=== PATIENT | female | born 1955 | race Caucasian/White ===

== ENCOUNTER 2024-12-23 13:33 | Emergency (ER) | payer MEDICARE, BC | END 2024-12-23 15:37 | disposition home or self-care (01) | LOC: CSHERS 13:33 | DX: M25.461 Effusion, right knee (principal); W10.9XXA Fall (on) (from) unspecified stairs and steps, initial encounter | CPT/HCPCS: 70450; 72125; 73030; 73502; 73564; 96372; 99283; J3010 ==